=== PATIENT | male | born 1970 | race Hispanic/Latino ===

== ENCOUNTER 2016-06-01 14:47 | Observation (INO) | payer OTHER ==
[2016-06-01] MEDS ORDERED: Sodium Chloride 0.9% 1,000 ML IV STA (15:22)
[2016-06-01 16:04] LABS: BASO # 0.1 K/uL (0.0-0.2); EOS # 0.1 K/uL (0.0-0.7); HEMATOCRIT 47.1 % (35.0-51.0); LYMPH % 27.6 % (20.0-40.0); MEAN CELL VOLUME 101.1 fl (80.0-94.0); MEAN CORPUSCULAR HEMOGLOBIN 33.3 pg (27.0-31.0); MEAN CORPUSCULAR HGB CONC 32.9 g/dL (33.0-37.0); MEAN PLATELET VOLUME 7.1 fl (7.2-11.7); MONO # 0.8 K/uL (0.0-0.8); MONO % 7.4 % (0.0-10.0); NEUT # 6.8 K/uL (1.8-7.0); RED CELL DISTRIBUTION WIDTH 15.1 % (11.5-14.5); WHITE BLOOD COUNT 10.8 K/uL (4.8-10.8)
--- NOTE | 2016-06-01 16:20 | ED PDOC ---
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 In ED patient states he has no memory of being in the cab, states last memory was his getting into the cab. Admits to a history of seizure but is not on any medication because, " the medication never agreed with me." Patient also admits to drinking heavily, last alcoholic drink last night. Denies drug use, urine incontinence, tongue biting or injury. Of note patient was recently admitted for bad facial cellulitis, currently still on antibiotics. Past Medical History Reviewed: Historical Data, Nursing Documentation, Vital Signs Vital Signs: Last Vital Signs Temp 97.8 F 06/02/16 13:00 Pulse 84 06/02/16 13:00 Resp 18 06/02/16 13:00 BP 127/73 06/02/16 13:00 Pulse Ox 98 06/02/16 13:00 - Medical History PMH: Seizures Denies: HIV, Chronic Kidney Disease - Surgical History Surgical History: Tonsillectomy - Family History Family History: States: Unknown Family Hx - Living Arrangements Living Arrangements: With Family - Social History Current smoker - smoking cessation education provided: Yes Alcohol: < 2 Drinks/Day Drugs: Cannabis (occasional) - Home Medications Home Medications: Ambulatory Orders Medication Instructions Recorded Clindamycin [Cleocin] 300 mg PO Q6H 06/01/16 Clotrimazole/Betamethasone 1 appl TOP TID 06/01/16 [Lotrisone] Multivitamin [Multi-Vitamin Daily] 1 tab PO DAILY 06/01/16 Neomycin/Polymyxin/Dexamethaso 1 drop RIGHTEYE 5XD 06/01/16 [Maxitrol Opht Susp] - Allergies Allergies/Adverse Reactions: Allergies Allergy/AdvReac Type Severity Reaction Status Date / Time acetaminophen [From Tylenol] Allergy RASH Verified 09/14/15 16:17 amoxicillin Allergy NAUSEA Verified 09/14/15 16:17 ampicillin Allergy RASH Verified 09/14/15 16:16 erythromycin base Allergy URTICARIA Verified 09/14/15 16:17 Review of Systems ROS Statement: Except As Marked, All Systems Reviewed And Found Negative Constitutional: Negative for: Weakness Eyes: Negative for: Vision Change Cardiovascular: Negative for: Chest Pain, Palpitations Respiratory: Negative for: Shortness of Breath Gastrointestinal: Negative for: Abdominal Pain Musculoskeletal: Negative for: Neck Pain Neurological: Positive for: Seizures. Negative for: Weakness, Numbness Physical Exam - Reviewed Nursing Documentation Reviewed: Yes Vital Signs Reviewed: Yes - Physical Exam Appears: Positive for: Non-toxic (appears older than stated age), No Acute Distress Head Exam: Positive for: ATRAUMATIC, NORMAL INSPECTION, NORMOCEPHALIC Skin: Positive for: Normal Color, Warm, Rash (Deep red, erythematous well demarkated rash to right face including nasal labial fold, cheek down to upper lip. (-) tenderness (-) blanching (-) exudates) Eye Exam: Positive for: Normal appearance, EOMI, PERRL ENT: Negative for: Normal ENT Inspection (DMM) Neck: Positive for: Normal, Painless ROM Cardiovascular/Chest: Positive for: Regular Rate, Rhythm, Tachycardia. Negative for: Murmur Respiratory: Positive for: Normal Breath Sounds. Negative for: Respiratory Distress Back: Positive for: Normal Inspection, Other (Mild diffuse lumbar (-) step off. Negative bilateral straight leg raise ) Extremity: Positive for: Normal ROM. Negative for: Pedal Edema Neurologic/Psych: Positive for: Alert, sizing machine and drier operator II-XII (grossly intact ), Oriented. Negative for: Motor/Sensory Deficits - Laboratory Results Result Diagrams: 06/01/16 15:20 06/01/16 18:19 - ECG O2 Sat by Pulse Oximetry: 97 (RA) Pulse Ox Interpretation: Normal Medical Decision Making Medical Decision Making: Time: 1515 Initial impression: Seizure, dehydration, possible intoxication Initial plan: -- CT-head -- EKG -- Alcohol serum -- Ammonia -- CMP -- Creatine Phosphokinase -- UDS -- Lact acid -- Magnesium -- Phosphorous -- Urine dip -- CBC -- NSF,Ativan -- electronic device monitor While in ED patient had a witness seizure with a posticle phase lasting 2 minutes, with about 5+ minutes of post ictal state. Seizure aborted with Ativan 2mg IV, patient at this time is A&O x3 with no memory of the incident. No urine incontinence or tongue biting. Labs with multiple derangements, including ammonia elevation. Will place patient on observation for multiple seizures. Needs repeat labs after hydration. Accession No. : [id number] Patient Name / ID : QUIANA PHIPPS / [id number] Exam Date : 06/01/2016 16:37:06 ( Approved ) Study Comment : Sex / Age : M / 46Y Creator : Swapnil Clark MD Dictator : Swapnil Clark MD Helicopter Utility Aircrewman : Tile Setter : Swapnil Clark MD Approver2 : Report Date : 06/01/2016 16:57:21 My Comment : PROCEDURE: CT HEAD WITHOUT CONTRAST. HISTORY: SEZIURE ?TRAUMA COMPARISON: 11/03/2015 TECHNIQUE: Axial computed tomography images were obtained through the head/brain without intravenous contrast. Radiation dose: Total exam DLP = 1092 mGy-cm. This CT exam was performed using one or more of the following dose reduction techniques: Automated exposure control, adjustment of the mA and/or kV according to patient size, and/or use of iterative reconstruction technique. FINDINGS: HEMORRHAGE: No intracranial hemorrhage. BRAIN: No mass effect or edema. No atrophy or chronic microvascular ischemic changes. VENTRICLES: Unremarkable. No hydrocephalus. CALVARIUM: Unremarkable. PARANASAL SINUSES: Unremarkable as visualized. No significant inflammatory changes. MASTOID AIR CELLS: Unremarkable as visualized. No inflammatory changes. OTHER FINDINGS: None. IMPRESSION: Normal CT of the Head. DANIELLE TATUM resident covering for Dr Juan Pablo Camargo Attestation: Documented by Cecily Martínez acting as a scribe for Micheline Barksdale MD MD Scribe Attestation: All medical record entries made by the Scribe were at my direction and personally dictated by me. I have reviewed the chart and agree that the record accurately reflects my personal performance of the history, physical exam, medical decision making, and the department course for this patient. I have also personally directed, reviewed, and agree with the discharge instructions and disposition. Disposition - Clinical Impression Clinical Impression: Recurrent seizures Counseled Patient/Family Regarding: Studies Performed, Diagnosis - Disposition Disposition Time: 16:30 Condition: FAIR - Pt Status Changed To: Hospital Disposition Of: Observation - POA Present On Arrival: Falls Or Trauma
[2016-06-01 16:29] LABS: ALCOHOL SERUM < 10 mg/dl (0-10); ALKALINE PHOSPHATASE 96 U/L (38-126); ALT/SGPT 16 U/L (21-72); AST/SGOT 50 U/L (17-59); BILIRUBIN,TOTAL 0.7 mg/dl (0.2-1.3); BLOOD UREA NITROGEN 9 mg/dl (9-20); CALCIUM 10.5 mg/dL (8.4-10.2); CHLORIDE 105 mmol/L (98-107); GFR AFRICAN-AMERICAN > 60; GLUCOSE,RANDOM 154 mg/dL (75-110); MAGNESIUM 2.4 MG/DL (1.6-2.3); PHOSPHOROUS 4.4 mg/dl (2.5-4.5); POTASSIUM 3.5 MMOL/L (3.6-5.0); SODIUM 150 mmol/l (132-148); TOTAL PROTEIN 8.4 G/DL (6.3-8.2)
[2016-06-01 16:38] LABS: ALB/GLOB RATIO 1.5 (1.0-2.1)
[2016-06-01 16:44] LABS: CARBON DIOXIDE 6 mmol/L (22-30)
--- NOTE | 2016-06-01 16:58 | CT ---
PROCEDURE: CT HEAD WITHOUT CONTRAST. HISTORY: SEZIURE ?TRAUMA COMPARISON: 11/03/2015 TECHNIQUE: Axial computed tomography images were obtained through the head/brain without intravenous contrast. Radiation dose: Total exam DLP = 1092 mGy-cm. This CT exam was performed using one or more of the following dose reduction techniques: Automated exposure control, adjustment of the mA and/or kV according to patient size, and/or use of iterative reconstruction technique. FINDINGS: HEMORRHAGE: No intracranial hemorrhage. BRAIN: No mass effect or edema. No atrophy or chronic microvascular ischemic changes. VENTRICLES: Unremarkable. No hydrocephalus. CALVARIUM: Unremarkable. PARANASAL SINUSES: Unremarkable as visualized. No significant inflammatory changes. MASTOID AIR CELLS: Unremarkable as visualized. No inflammatory changes. OTHER FINDINGS: None. IMPRESSION: Normal CT of the Head.
--- NOTE | 2016-06-01 17:39 | RAD ---
HISTORY: seizure COMPARISON: Chest x-ray performed 09/15/10 TECHNIQUE: Chest, one view. FINDINGS: LUNGS: No focal consolidation. Please note that chest x-ray has limited sensitivity for the detection of pulmonary masses. PLEURA: No significant pleural effusion identified. No definite pneumothorax . CARDIOVASCULAR: Heart size appears within normal limits. OSSEOUS STRUCTURES: Multiple chronic appearing right rib fracture deformities (Right 3rd, 4th, 6th, and 7th ribs). Correlate clinically. VISUALIZED UPPER ABDOMEN: Unremarkable. OTHER FINDINGS: None. IMPRESSION: No focal consolidation, significant pleural effusion, or definite pneumothorax identified. Multiple chronic appearing right rib fracture deformities. Correlate clinically.
--- NOTE | 2016-06-01 17:50 | CP.PCM.HP ---
<MkYandel T - Last Filed: 06/02/16 06:08> History of Present Illness - History of Present Illness History of Present Illness: 46 yo M w PMHx of seizure disorder, facial cellulitis from Mar, and etoh abuse is admitted for seizure disorder and r/o liver disease. 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 Pt did have second seizure after arriving in the ED. He is alert, answers questions well, but does complain of diffuse myalgias. He has 5-6 bottles of beer per day and has been drink for the previous ~20 years, with his last drink yesterday evening. Pt claims to have a seizure disorder of unknown origin that only sometimes coincides with periods without etoh. He does not take any medication due to unwanted side effects. He denies any complaints or problems regarding his facial cellulitis, stating that he takes his medications regularly and adds that his skin is slowly improving. Pt denies f/c/n/v/d/c, headaches, cp, sob, dyspnea, cough, abd pain, hematuria, or dysuria. PMD: Dr Mcdonald PMHx: ?Seizure disorder, Cellulitis of Face (Mar), Chronic etoh abuse, h/ o cocaine abuse PSHx: Appendectomy 20+ years prior Allergies: NKDA Home Meds: Clotrimazole/Betamethasone TOP TID, Clindamycin PO Q6H, Neomycin/ Polymyxin/Dexamethasone OU 5xD SHx: Drinks 6-12 bottles of beer daily w last drink last night, denies cigarettes, states marijuana intermittently ED Course: -CBC -CMP --f/u BMP -etoh Serum -Drug Screen -Ammonia Stat --f/u Ammonia -Lactic Acid --f/u Lactic Acid -Mg/Phos -CPK -CXR -CT Head -EKG -NS 1L Bolus -Ativan 2mg IV STAT x1 -Lactulose 20gm PO ONCE Present on Admission - Present on Admission Any Indicators Present on Admission: No History of DVT/PE: No History of Uncontrolled Diabetes: No Urinary Catheter: No Decubitus Ulcer Present: No Review of Systems - Review of Systems Review of Systems: see HPI Past Patient History - Infectious Disease Hx of Infectious Diseases: None - Past Medical History & Family History Past Medical History?: Yes - Past Social History Smoking Status: Light Smoker < 10 Cigarettes Daily - CARDIAC Hx Cardiac Disorders: No - PULMONARY Hx Respiratory Disorders: No - NEUROLOGICAL Hx Seizures: Yes - HEENT Hx HEENT Problems: No - RENAL Hx Chronic Kidney Disease: No - ENDOCRINE/METABOLIC Hx Endocrine Disorders: No - HEMATOLOGICAL/ONCOLOGICAL Hx Human Immunodeficiency Virus (HIV): No - INTEGUMENTARY Hx Dermatological Problems: No - MUSCULOSKELETAL/RHEUMATOLOGICAL Hx Falls: No - GASTROINTESTINAL Hx Gastrointestinal Disorders: No - GENITOURINARY/GYNECOLOGICAL Hx Genitourinary Disorders: No - PSYCHIATRIC Hx Psychophysiologic Disorder: No Hx Substance Use: Yes (FREQUENT MARIJUANA USE,OCCASIONAL COCAINE USE) - SURGICAL HISTORY Hx Tonsillectomy: Yes - ANESTHESIA Hx Anesthesia: Yes Hx Anesthesia Reactions: No Hx Malignant Hyperthermia: No Meds Allergies/Adverse Reactions: Allergies Allergy/AdvReac Type Severity Reaction Status Date / Time acetaminophen [From Tylenol] Allergy RASH Verified 09/14/15 16:17 amoxicillin Allergy NAUSEA Verified 09/14/15 16:17 ampicillin Allergy RASH Verified 09/14/15 16:16 erythromycin base Allergy URTICARIA Verified 09/14/15 16:17 Physical Exam - Constitutional Appears: Non-toxic, No Acute Distress, Unkempt - Head Exam Head Exam: NORMOCEPHALIC Additional comments: healing, erythematous, non-draining rash from R occipital area towards R labial fold - Eye Exam Eye Exam: EOMI Pupil Exam: PERRL - ENT Exam ENT Exam: Mucous Membranes Dry - Neck Exam Neck exam: Positive for: Full Rom. Negative for: Tenderness - Respiratory Exam Respiratory Exam: Clear to Auscultation Bilateral, NORMAL BREATHING PATTERN. absent: Rhonchi, Wheezes - Cardiovascular Exam Cardiovascular Exam: REGULAR RHYTHM - GI/Abdominal Exam GI & Abdominal Exam: Soft. absent: Tenderness - Extremities Exam Extremities exam: Negative for: calf tenderness, pedal edema - Back Exam Back exam: NORMAL INSPECTION. absent: CVA tenderness (L), CVA tenderness (R), vertebral tenderness - Neurological Exam Neurological exam: Alert, CN II-XII Intact, Oriented x3 - Psychiatric Exam Psychiatric exam: Normal Affect, Normal Mood - Skin Skin Exam: Dry, Intact, Normal Color, Warm Results - Vital Signs Recent Vital Signs: Last Vital Signs Temp 98.0 F 06/01/16 14:50 Pulse 114 H 06/01/16 16:59 Resp 14 06/01/16 16:59 BP 112/75 06/01/16 16:59 Pulse Ox 98 06/01/16 16:59 - Labs Result Diagrams: 06/01/16 15:20 06/01/16 18:19 Assessment & Plan - Assessment and Plan (Free Text) Plan: 46 yo M w PMHx of seizure disorder, facial cellulitis from Mar, and etoh abuse is admitted for AMS due to seizure, in setting of ?seizure disorder and r/ o liver disease 1) AMS w ?h/o Seizure Disorder -Completely AAOx3, answers questions completely and appropriately -No focal deficits on physical exam -Seizure Precautions in place -Neuro Consult aware and onboard -CT Head: Normal CT of the Head -Lactic Acid originally 22.7 --f/u lvl resulted 1.5 (wnl) -Ativan 2mg IVP Q6H PRN seizures/withdrawal -Zofran 4mg IVP Q6H PRN -f/u Neuro Recommendations -f/u Drug Tox 2) r/o Liver Disease -Ammonia originally 312 --f/u lvl resulted < 9 -GI Consult aware and onboard -f/u U/S Abd 3) Chronic etoh abuse -Alcohol lvl < 10 -Banana bag 1L @ 500mL/hr -Ativan 2mg IVP Q6H PRN seizures/withdrawal -NPO until Banana bag given 4) Facial Abscess -Improved from previous admission -Chronic condition currently managed with set medicinal regimen -Clindamycin PO Q6H -Neomycin/Polymyxin/Dexamethasone OU 5xD 5) DVT Prophylaxis -SCDs -Lovenox 40mg SC Daily <Chaz Mcdonald - Last Filed: 06/06/16 06:58> Results - Vital Signs Recent Vital Signs: Last Vital Signs Temp 97.8 F 06/02/16 13:00 Pulse 84 06/02/16 13:00 Resp 18 06/02/16 13:00 BP 127/73 06/02/16 13:00 Pulse Ox 97 06/02/16 15:37 - Labs Result Diagrams: 06/01/16 15:20 06/01/16 18:19 Attending/Attestation - Attestation I have personally seen and examined this patient.: Yes I have fully participated in the care of the patient.: Yes I have reviewed all pertinent clinical information: Yes
[2016-06-01 18:44] LABS: BLOOD UREA NITROGEN 10 mg/dl (9-20); CALCIUM 9.8 mg/dL (8.4-10.2); CARBON DIOXIDE 25 mmol/L (22-30); CHLORIDE 102 mmol/L (98-107); GFR AFRICAN-AMERICAN > 60; GLUCOSE,RANDOM 93 mg/dL (75-110); PARTIAL THROMBOPLASTIN TIME 19.6 SECONDS (23.3-32.5); POTASSIUM 3.9 MMOL/L (3.6-5.0); SODIUM 136 mmol/l (132-148)
[2016-06-01] MEDS ORDERED: Sodium Chloride 0.9% 1,000 ML IV SCH (18:45)
[2016-06-01] MEDS ORDERED: Multivitamin (MVI) 10 ML, Thiamine 100 MG, Folic Acid 1 MG in Sodium Chloride 0.9% 1,00... IV ONE (19:31)
[2016-06-01] MEDS: Maxitrol Opht Susp OU SCH (20:52)
[2016-06-02] MEDS: Maxitrol Opht Susp OU SCH ×3 (04:28→13:00)
--- NOTE | 2016-06-02 08:33 | CP.PCM.PN ---
<Sean New - Last Filed: 06/02/16 15:27> Subjective - Date & Time of Evaluation Date of Evaluation: 06/02/16 Time of Evaluation: 08:29 - Subjective Subjective: The patient is a 46 y/o man w PMHx of seizure disorder, facial cellulitis from Mar, and etoh abuse is admitted for AMS due to seizure, in setting of unknown seizure disorder and r/o liver disease The patient was seen this morning. There are non acute events overnight. The patient is not in acute distress. The patient is laying in bed comfortably. The patient denies seizures overnight and since ED. The patient denies shaking , visual, auditory, and tactile hallucinations. The patient is tolerating PO and voiding appropriately. The patient denies headaches, dizziness, chest pain , dyspnea, abdominal pain, nausea, vomiting, dysuria, and fevers. Objective - Vital Signs/Intake and Output Vital Signs (last 24 hours): Temp Pulse Resp BP Pulse Ox 98.7 F 74 18 108/68 98 06/02/16 04:31 06/02/16 04:31 06/02/16 04:31 06/02/16 04:31 06/02/16 04:31 - Medications Medications: Current Medications Carbamazepine (Tegretol-Xr) 200 mg PO Q12 [facility] Clindamycin HCl (Cleocin) 300 mg PO Q6H [facility] Last Admin: 06/02/16 06:20 Dose: 300 mg Clotrimazole (Lotrimin 1% Cream) 1 applic TOP TID [facility] Enoxaparin Sodium (Lovenox) 40 mg SC DAILY [facility] PRN Reason: Protocol Lorazepam (Ativan) 2 mg IVP Q6 PRN PRN Reason: Other Neomycin/Polymyxin/Dexamethasone (Maxitrol Opht Susp) 1 drop OU 5XD [facility] Last Admin: 06/02/16 04:28 Dose: 1 drop Ondansetron HCl (Zofran Inj) 4 mg IVP Q6 PRN PRN Reason: Nausea/Vomiting Thiamine HCl (Vitamin B1 Tab) 50 mg PO DAILY [facility] Vitamin B Complex/Vit C/Folic Acid (Nephro-Albino) 1 tab PO DAILY [facility] - Labs Labs: 06/01/16 18:19 PT 9.8 SECONDS (9.6-11.2) 06/01/16 18:19 INR 0.94 (0.92-1.08) 06/01/16 18:19 APTT 19.6 SECONDS (23.3-32.5) L 06/01/16 18:19 - Constitutional Appears: No Acute Distress - Head Exam Head Exam: NORMOCEPHALIC Additional comments: healing, erythematous, non-draining rash from R occipital area towards R labial fold - Eye Exam Eye Exam: EOMI Pupil Exam: PERRL - Neck Exam Neck Exam: Full ROM - Respiratory Exam Respiratory Exam: Clear to Ausculation Bilateral, NORMAL BREATHING PATTERN. absent: Accessory Muscle Use, Chest Wall Tenderness, Decreased Breath Sounds, Prolonged Expiratory Phase, Rales, Rhonchi, Wheezes, Respiratory Distress, Stridor - Cardiovascular Exam Cardiovascular Exam: REGULAR RHYTHM. absent: Tachycardia - GI/Abdominal Exam GI & Abdominal Exam: Soft, Normal Bowel Sounds. absent: Distended, Tenderness - Extremities Exam Extremities Exam: Full ROM, Normal Inspection. absent: Calf Tenderness, Tenderness - Neurological Exam Neurological Exam: Alert, Awake, CN II-XII Intact, Oriented x3 - Skin Skin Exam: Dry, Intact, Normal Color, Warm Assessment and Plan - Assessment and Plan (Free Text) Assessment: The patient is a 46 y/o man w PMHx of seizure disorder, facial cellulitis from Mar, and etoh abuse is admitted for AMS due to seizure, in setting of seizure disorder and r/o liver disease Plan: 1) AMS w ?h/o Seizure Disorder -Completely AAOx3, answers questions completely and appropriately -No focal deficits on physical exam -Seizure Precautions in place -Neuro Consult aware and onboard -CT Head: Normal CT of the Head -Lactic Acid 22.7 --f/u lvl resulted 1.5 (wnl) -Ativan 2mg IVP Q6H PRN seizures/withdrawal -Zofran 4mg IVP Q6H PRN -f/u Neuro Recommendations -Drug Tox: positive for cannabinoids -carbamazepine 200 mg PO Q12h -EEG ordered -brain mRI w/wo contrast ordered -UA ordered 2) r/o Liver Disease -Ammonia originally 312 --f/u lvl resulted < 9 -GI Consult aware and onboard -f/u U/S Abd 3) Chronic etoh abuse -Alcohol lvl < 10 -Banana bag 1L @ 500mL/hr -Ativan 2mg IVP Q6H PRN seizures/withdrawal -NPO until Banana bag given -thiamine 50 mg PO daily 4) Facial Abscess -Improved from previous admission -Chronic condition currently managed with set medicinal regimen -Clindamycin PO Q6H -Neomycin/Polymyxin/Dexamethasone OU 5xD 5) DVT Prophylaxis -SCDs -Lovenox 40mg SC Daily <Chaz Mcdonald - Last Filed: 06/06/16 06:59> Objective - Vital Signs/Intake and Output Vital Signs (last 24 hours): Temp Pulse Resp BP Pulse Ox 97.8 F 84 18 127/73 97 06/02/16 13:00 06/02/16 13:00 06/02/16 13:00 06/02/16 13:00 06/02/16 15:37 - Labs Labs: 06/01/16 18:19 PT 9.8 SECONDS (9.6-11.2) 06/01/16 18:19 INR 0.94 (0.92-1.08) 06/01/16 18:19 APTT 19.6 SECONDS (23.3-32.5) L 06/01/16 18:19 Attending/Attestation - Attestation I have personally seen and examined this patient.: Yes I have fully participated in the care of the patient.: Yes I have reviewed all pertinent clinical information, including history, physical exam and plan: Yes
[2016-06-02] MEDS ORDERED: Enoxaparin 40 mg Syringe SC SCH (09:00)
[2016-06-02] MEDS ORDERED: Multivitamin Vitamin B Complex (Nephro-Vite) Tab PO SCH (09:00)
--- NOTE | 2016-06-02 13:17 | CON ---
DATE: 06/02/2016 REFERRING PHYSICIAN: Dr. Mcdonald REASON FOR CONSULTATION: Elevated ammonia level. This is a pleasant 46-year-old man who is an alcoholic, essentially a seizure disorder, known with a history of recently, active drinker, had a witnessed seizure and GI was called for elevated amm onia. The he patient actually has been drinking significantly for fpc, many times a day kate boone. Denies any fevers, chills, nausea or vomiting. At this point, he is completely with it and l ucid as he was yesterday after the seizure and is currently lying in bed, comfortable, in no apparent distress. PAST MEDICAL HISTORY: As above. PAST SURGICAL HISTORY: As above. MEDICATIONS: Have been reviewed. All other systems have been reviewed and negative apart from the HPI. PHYSICAL EXAMINATION: VITAL SIGNS: Here in the hospital, grossly unremarkable. GENERAL: This is a pleasant, middle-aged man, lying in bed, comfortable, in no apparent distress. HEAD: Normocephalic, atraumatic. EYES: Pupils equally reactive to light bilaterally. No conjunctival pallor or icterus. NECK: Supple, normal range of motion. No lymphadenopathy appreciated. LUNGS: Coarse breath sounds bilaterally. HEART: S1, S2. Regular rate and rhythm. No murmurs appreciated. ABDOMEN: Soft, nontender, bowel sounds present. No rebound, no guarding. RECTAL: Deferred. EXTREMITIES: Pulses present bilaterally. SKIN: Warm, dry, intact. NEUROLOGIC: Alert and oriented x 3. All labs and relevant radiology have been reviewed. LABORATORIES: Initially ammonia was 312 and then 9 on the same day. Currently, it is 28. Hemoglobi n is stable. LFTs are not elevated at all. Positive for cannabinoids in the urine. ASSESSMENT AND PLAN: This is a 46-year-old male with elevated ammonia. Given that he had a seizure, this is more likely metabolic encephalopathy. The ammonia at this point, since he is lucid, is comp letely to be ignored at this point. I would get an ultrasound to rule out cirrhosis for screening pu rposes for hepatocellular carcinoma as indicated. Otherwise, from a GI standpoint, advance diet as t olerated and follow up with me in the office. Thank you for the consult. Zack Claros MD, PhD cc:Chaz Mcdonald MD [id number] TT: 06/02/2016 13:17:08 Confirmation # [id number] Dictation # [id number]
[2016-06-02 13:23] VITALS: BP 127/73; PULSE 84; RESP 18; TEMP 97.8
[2016-06-02 15:34] VITALS: O2SAT 97
--- NOTE | 2016-06-02 16:08 | CP.PCM.DIS ---
<Sean New - Last Filed: 06/02/16 15:50> Provider - Provider Date of Admission: 06/01/16 17:14 Attending physician: Chaz Mcdonald MD Time Spent in preparation of Discharge (in minutes): 30 Diagnosis - Discharge Diagnosis (1) Generalized seizure Status: Acute (2) Recurrent seizures Status: Chronic (3) Cellulitis and abscess of face Status: Chronic Hospital Course - Lab Results Lab Results: Most Recent Lab Values WBC 10.8 K/uL (4.8-10.8) D 06/01/16 15:20 RBC 4.66 Mil/uL (4.40-5.90) 06/01/16 15:20 Hgb 15.5 g/dL (12.0-18.0) 06/01/16 15:20 Hct 47.1 % (35.0-51.0) 06/01/16 15:20 MCV 101.1 fl (80.0-94.0) H D 06/01/16 15:20 MCH 33.3 pg (27.0-31.0) H 06/01/16 15:20 MCHC 32.9 g/dL (33.0-37.0) L 06/01/16 15:20 RDW 15.1 % (11.5-14.5) H 06/01/16 15:20 Plt Count 285 K/uL (130-400) 06/01/16 15:20 MPV 7.1 fl (7.2-11.7) L 06/01/16 15:20 Neut % (Auto) 63.0 % (50.0-75.0) 06/01/16 15:20 Lymph % (Auto) 27.6 % (20.0-40.0) 06/01/16 15:20 [place] % (Auto) 7.4 % (0.0-10.0) 06/01/16 15:20 Eos % (Auto) 1.0 % (0.0-4.0) 06/01/16 15:20 Baso % (Auto) 1.0 % (0.0-2.0) 06/01/16 15:20 Neut # 6.8 K/uL (1.8-7.0) 06/01/16 15:20 Lymph # 3.0 K/uL (1.0-4.3) 06/01/16 15:20 [place] # 0.8 K/uL (0.0-0.8) 06/01/16 15:20 Eos # 0.1 K/uL (0.0-0.7) 06/01/16 15:20 Baso # 0.1 K/uL (0.0-0.2) 06/01/16 15:20 PT 9.8 SECONDS (9.6-11.2) 06/01/16 18:19 INR 0.94 (0.92-1.08) 06/01/16 18:19 APTT 19.6 SECONDS (23.3-32.5) L 06/01/16 18:19 Sodium 136 mmol/l (132-148) 06/01/16 18:19 Potassium 3.9 MMOL/L (3.6-5.0) 06/01/16 18:19 Chloride 102 mmol/L (98-107) 06/01/16 18:19 Carbon Dioxide 25 mmol/L (22-30) 06/01/16 18:19 Anion Gap 13 (10-20) 06/01/16 18:19 BUN 10 mg/dl (9-20) 06/01/16 18:19 Creatinine 0.8 mg/dL (0.8-1.5) 06/01/16 18:19 Est GFR ( Amer) > 60 06/01/16 18:19 Est GFR (Non-Af Amer) > 60 06/01/16 18:19 POC Glucose (mg/dL) 111 mg/dL (65-110) H 06/01/16 14:56 Random Glucose 93 mg/dL (75-110) 06/01/16 18:19 Lactic Acid 1.5 MMOL/L (0.7-2.1) 06/01/16 18:19 Calcium 9.8 mg/dL (8.4-10.2) 06/01/16 18:19 Phosphorus 4.4 mg/dl (2.5-4.5) 06/01/16 15:20 Magnesium 2.4 MG/DL (1.6-2.3) H 06/01/16 15:20 Total Bilirubin 0.7 mg/dl (0.2-1.3) 04/06/17 15:20 AST 50 U/L (17-59) 06/01/16 15:20 ALT 16 U/L (21-72) L D 06/01/16 15:20 Alkaline Phosphatase 96 U/L (38-126) 06/01/16 15:20 Ammonia 28 umo/L (16-60) D 06/02/16 07:00 Total Creatine Kinase 102 U/L (55-170) 06/01/16 15:20 Total Protein 8.4 G/DL (6.3-8.2) H 06/01/16 15:20 Albumin 5.1 g/dL (3.5-5.0) H 06/01/16 15:20 Globulin 3.3 gm/dL (2.2-3.9) 06/01/16 15:20 Albumin/Globulin Ratio 1.5 (1.0-2.1) 06/01/16 15:20 Vitamin B12 427 pg/mL (239-931) 06/02/16 07:00 Urine Opiates Screen Negative (NEGATIVE) 06/02/16 02:49 Urine Methadone Screen Negative (NEGATIVE) 06/02/16 02:49 Ur Barbiturates Screen Negative (NEGATIVE) 06/02/16 02:49 Ur Phencyclidine Scrn Negative (NEGATIVE) 06/02/16 02:49 Ur Amphetamines Screen Negative (NEGATIVE) 06/02/16 02:49 U Benzodiazepines Scrn Negative (NEGATIVE) 06/02/16 02:49 U Oth Cocaine Metabols Negative (NEGATIVE) 06/02/16 02:49 U Cannabinoids Screen Positive (NEGATIVE) H 06/02/16 02:49 Alcohol, Quantitative < 10 mg/dl (0-10) 06/01/16 15:20 - Hospital Course Hospital Course: The patient is a 46 y/o man w/ PMHx of seizure disorder, facial cellulitis from Mar, and etoh abuse is admitted for seizure disorder and r/o liver disease. Patient was traveling to work in a cab, had a witnessed seizure, experienced + urinary incontinence, and slowly awoke w c/o of diffuse muscle pain. Patient did have second seizure after arriving in the ED. He is alert, answers questions well, but does complain of diffuse myalgias. He has 5-6 bottles of beer per day and has been drink for the previous ~20 years, with his last drink yesterday evening. Patient claims to have a seizure disorder of unknown origin that only sometimes coincides with periods without etoh. He does not take any medication due to unwanted side effects. He denies any complaints or problems regarding his facial cellulitis, stating that he takes his medications regularly and adds that his skin is slowly improving. The patient had CBC done that had no acute findings but did show increased MCV of 101.1, CMP was WNL, lactic acid decreased from 22.7 to 1.5, ammonia was initially 312 and decreased to 28, drug screen positive for cannabinoids, coags with PT 9.8, INR 0.94, APTT 19.6. CXR and head CT were WNL. The patient was refusing EEG and brain MRI becasue he reports he had those done 2 weeks ago and he wants to leave by the afternoon. The patient was seen by GI and recommends continued management with outpatient follow up. The patient reports he wants to leave against medical advice. The patient had not yet been cleared by neurology. The patient was counseled on the risks of recurrent seizure without medication and risk of possible fall with head injury. The patient was able to repeat and reiterate the risks back to the Dr. New. The patient is competent to make his own decisions. The patient reports he has an appointment with Dr. Mcdonald on 2016. - Date & Time of H&P Date of H&P: 06/01/16 Time of H&P: 17:50 Discharge Exam - Head Exam Head Exam: NORMAL INSPECTION, NORMOCEPHALIC Additional comments: healing, erythematous, non-draining rash from R occipital area towards R labial fold - Eye Exam Eye Exam: EOMI Pupil Exam: PERRL - ENT Exam ENT Exam: Mucous Membranes Moist - Respiratory Exam Respiratory Exam: Clear to PA & Lateral. absent: Accessory Muscle Use, Chest Wall Tenderness, Decreased Breath Sounds, Prolonged Expiratory Phase, Rales, Rhonchi, Wheezes, Respiratory Distress, Stridor - Cardiovascular Exam Cardiovascular Exam: REGULAR RHYTHM. absent: Tachycardia - GI/Abdominal Exam GI & Abdominal Exam: Normal Bowel Sounds, Soft. absent: Diminished Bowel Sounds , Distended, Tenderness - Neurological Exam Neurological exam: Alert, CN II-XII Intact, Oriented x3 - Skin Skin Exam: Dry, Intact, Normal Color, Warm Discharge Plan - Follow Up Plan Condition: FAIR Disposition: AGAINST MEDICAL ADVICE <Chaz Mcdonald - Last Filed: 06/06/16 07:00> Provider - Provider Date of Admission: 06/01/16 17:14 Attending physician: Chaz Mcdonald MD Hospital Course - Lab Results Lab Results: Most Recent Lab Values WBC 10.8 K/uL (4.8-10.8) D 06/01/16 15:20 RBC 4.66 Mil/uL (4.40-5.90) 06/01/16 15:20 Hgb 15.5 g/dL (12.0-18.0) 06/01/16 15:20 Hct 47.1 % (35.0-51.0) 06/01/16 15:20 MCV 101.1 fl (80.0-94.0) H D 06/01/16 15:20 MCH 33.3 pg (27.0-31.0) H 06/01/16 15:20 MCHC 32.9 g/dL (33.0-37.0) L 06/01/16 15:20 RDW 15.1 % (11.5-14.5) H 06/01/16 15:20 Plt Count 285 K/uL (130-400) 06/01/16 15:20 MPV 7.1 fl (7.2-11.7) L 06/01/16 15:20 Neut % (Auto) 63.0 % (50.0-75.0) 06/01/16 15:20 Lymph % (Auto) 27.6 % (20.0-40.0) 06/01/16 15:20 [place] % (Auto) 7.4 % (0.0-10.0) 06/01/16 15:20 Eos % (Auto) 1.0 % (0.0-4.0) 06/01/16 15:20 Baso % (Auto) 1.0 % (0.0-2.0) 06/01/16 15:20 Neut # 6.8 K/uL (1.8-7.0) 06/01/16 15:20 Lymph # 3.0 K/uL (1.0-4.3) 06/01/16 15:20 [place] # 0.8 K/uL (0.0-0.8) 06/01/16 15:20 Eos # 0.1 K/uL (0.0-0.7) 06/01/16 15:20 Baso # 0.1 K/uL (0.0-0.2) 06/01/16 15:20 PT 9.8 SECONDS (9.6-11.2) 06/01/16 18:19 INR 0.94 (0.92-1.08) 06/01/16 18:19 APTT 19.6 SECONDS (23.3-32.5) L 06/01/16 18:19 Sodium 136 mmol/l (132-148) 06/01/16 18:19 Potassium 3.9 MMOL/L (3.6-5.0) 06/01/16 18:19 Chloride 102 mmol/L (98-107) 06/01/16 18:19 Carbon Dioxide 25 mmol/L (22-30) 06/01/16 18:19 Anion Gap 13 (10-20) 06/01/16 18:19 BUN 10 mg/dl (9-20) 06/01/16 18:19 Creatinine 0.8 mg/dL (0.8-1.5) 06/01/16 18:19 Est GFR ( Amer) > 60 06/01/16 18:19 Est GFR (Non-Af Amer) > 60 06/01/16 18:19 POC Glucose (mg/dL) 111 mg/dL (65-110) H 06/01/16 14:56 Random Glucose 93 mg/dL (75-110) 06/01/16 18:19 Lactic Acid 1.5 MMOL/L (0.7-2.1) 06/01/16 18:19 Calcium 9.8 mg/dL (8.4-10.2) 06/01/16 18:19 Phosphorus 4.4 mg/dl (2.5-4.5) 06/01/16 15:20 Magnesium 2.4 MG/DL (1.6-2.3) H 06/01/16 15:20 Total Bilirubin 0.7 mg/dl (0.2-1.3) 06/01/16 15:20 AST 50 U/L (17-59) 06/01/16 15:20 ALT 16 U/L (21-72) L D 06/01/16 15:20 Alkaline Phosphatase 96 U/L (38-126) 06/01/16 15:20 Ammonia 28 umo/L (16-60) D 06/02/16 07:00 Total Creatine Kinase 102 U/L (55-170) 06/01/16 15:20 Total Protein 8.4 G/DL (6.3-8.2) H 06/01/16 15:20 Albumin 5.1 g/dL (3.5-5.0) H 06/01/16 15:20 Globulin 3.3 gm/dL (2.2-3.9) 06/01/16 15:20 Albumin/Globulin Ratio 1.5 (1.0-2.1) 06/01/16 15:20 Vitamin B12 427 pg/mL (239-931) 06/02/16 07:00 Prolactin 7.1 ng/mL (3.7-17.9) 06/02/16 07:00 Urine Opiates Screen Negative (NEGATIVE) 06/02/16 02:49 Urine Methadone Screen Negative (NEGATIVE) 06/02/16 02:49 Ur Barbiturates Screen Negative (NEGATIVE) 06/02/16 02:49 Ur Phencyclidine Scrn Negative (NEGATIVE) 06/02/16 02:49 Ur Amphetamines Screen Negative (NEGATIVE) 06/02/16 02:49 U Benzodiazepines Scrn Negative (NEGATIVE) 06/02/16 02:49 U Oth Cocaine Metabols Negative (NEGATIVE) 06/02/16 02:49 U Cannabinoids Screen Positive (NEGATIVE) H 06/02/16 02:49 Alcohol, Quantitative < 10 mg/dl (0-10) 06/01/16 15:20 VZV IgG Antibody 1.64 (>/=1.10) 06/02/16 07:00 VZV IgM Antibody >=5.00 (<=0.90) H 06/02/16 07:00 Attending/Attestation - Attestation I have personally seen and examined this patient.: Yes I have fully participated in the care of the patient.: Yes I have reviewed all pertinent clinical information, including history, physical exam and plan: Yes
--- NOTE | 2016-06-02 19:37 | CARD ---
APPROVED REPORT EKG Measurement Heart [id number] <Conclusion> Sinus tachycardia Otherwise normal ECG
[2016-06-03 15:11] LABS: VARICELLA-ZOSTER AB (IGG) 1.64 (>/=1.10)
[2016-06-04 15:56] LABS: VARICELLA-ZOSTER AB (IGM) >=5.00 (<=0.90)
[2016-06-06 14:55] LABS: ACETONE None Detected (()); ETHANOL None Detected (()); METHANOL None Detected (())
== END 2016-06-02 16:44 | disposition left against medical advice (07) ==
LOC: H.ER 14:47 → H.ERHOLD 17:14 → H.TEL 18:46
PROVIDERS: ADMIT Family Medicine; ATTEND Family Medicine
DX: G40.409 Other generalized epilepsy and epileptic syndromes, not intractable, without status epilepticus (principal); L03.211 Cellulitis of face; Z88.6 Allergy status to analgesic agent; Z88.1 Allergy status to other antibiotic agents; Z88.0 Allergy status to penicillin; F17.200 Nicotine dependence, unspecified, uncomplicated; G40.802 Other epilepsy, not intractable, without status epilepticus; F10.20 Alcohol dependence, uncomplicated; Y90.0 Blood alcohol level of less than 20 mg/100 ml

== ENCOUNTER 2017-08-01 17:35 | Emergency (ER) | payer OTHER ==
[2017-08-01 17:35] VITALS: BMI 18.6
[2017-08-01] MEDS ORDERED: Sodium Chloride 0.9% 1,000 ML IV STA (17:55)
--- NOTE | 2017-08-01 18:06 | ED PDOC ---
HPI: Seizure Time Seen by Provider: 08/01/17 17:42 Chief Complaint (Nursing): Seizure Chief Complaint (Provider): Seizure History Per: Patient History/Exam Limitations: no limitations Recent Seizure Activity Began: Just Before Arrival Number Of Seizures: One Length Of Seizures (Duration): Unknown Associated Symptoms: Bit Tongue Additional Complaint(s): Bill Miles is a 47 year old male, with a past medical history of seizures, who was brought to the emergency department via EMS for witnessed seizure onset prior to arrival. Patient is currently complaining of generalized body aches and a mild chest pain. Patient states he was at work when he had a sense of gabi vu before seizure began, he is unsure of the duration. Patient reports he had a seizure about x2 months ago, he is currently taking Valproic acid 500mg PO BID but states he has not been compliant with medications. He denies any head injuries, fever, chills, headache, vision changes, nausea, vomit, diarrhea , abdominal pain, dizziness, numbness or tingling, weakness, shortness of breath , suicidal or homicidal ideation. No further medical complaints. No neck pain. PMD: Chaz Mcdonald Past Medical History Reviewed: Historical Data, Nursing Documentation, Vital Signs Vital Signs: Last Vital Signs Temp 98.7 F 08/01/17 17:38 Pulse 98 H 08/01/17 17:38 Resp 16 08/01/17 17:38 BP 120/88 08/01/17 17:38 Pulse Ox 98 08/01/17 20:27 - Medical History PMH: Depression, Seizures (alcohol withdrawal) Denies: HIV, Chronic Kidney Disease - Surgical History Surgical History: Tonsillectomy - Family History Family History: States: Unknown Family Hx - Social History Current smoker - smoking cessation education provided: No Alcohol: > 2 Drinks/Day - Immunization History Hx Tetanus Toxoid Vaccination: No Hx Influenza Vaccination: No Hx Pneumococcal Vaccination: No - Home Medications Home Medications: Ambulatory Orders Medication Instructions Recorded Divalproex [Depakote DR] 500 mg PO BID #60 tcp 04/21/17 Doxycycline Monohydrate 100 mg PO BID #14 capsule 04/21/17 Thiamine [Vitamin B1 Tab] 100 mg PO DAILY #30 tab 04/21/17 chlordiazePOXIDE [Librium] 25 mg PO Q8 PRN #5 cap 04/21/17 - Allergies Allergies/Adverse Reactions: Allergies Allergy/AdvReac Type Severity Reaction Status Date / Time amoxicillin Allergy NAUSEA Verified 04/18/17 06:52 ampicillin Allergy RASH Verified 04/18/17 06:52 erythromycin base Allergy URTICARIA Verified 04/18/17 06:52 Penicillins Allergy RASH Verified 08/01/17 17:38 Review of Systems ROS Statement: Except As Marked, All Systems Reviewed And Found Negative Constitutional: Positive for: Other (generalized body aches). Negative for: Fever, Chills Eyes: Negative for: Vision Change Cardiovascular: Positive for: Chest Pain (mild) Respiratory: Negative for: Shortness of Breath Gastrointestinal: Negative for: Nausea, Vomiting, Abdominal Pain, Diarrhea Neurological: Positive for: Seizures. Negative for: Weakness, Numbness ( tingling), Headache, Dizziness Psych: Negative for: Suicidal ideation (or homicidal ideation) Physical Exam - Reviewed Nursing Documentation Reviewed: Yes Vital Signs Reviewed: Yes - Physical Exam Appears: Positive for: Non-toxic Head Exam: Positive for: ATRAUMATIC, NORMAL INSPECTION, NORMOCEPHALIC Skin: Positive for: Normal Color, Warm, Dry Eye Exam: Positive for: Normal appearance, EOMI, PERRL ENT: Positive for: Other (mild abrasion to left frontal tongue). Negative for: Nasal Congestion Neck: Positive for: Painless ROM, Supple Cardiovascular/Chest: Positive for: Regular Rate, Rhythm. Negative for: Murmur Respiratory: Positive for: Normal Breath Sounds. Negative for: Respiratory Distress Gastrointestinal/Abdominal: Positive for: Normal Exam, Soft. Negative for: Tenderness Back: Positive for: Normal Inspection. Negative for: L CVA Tenderness, R CVA Tenderness, Vertebral Tenderness Extremity: Positive for: Normal ROM (upper and lower extremities). 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 Negative for: Motor/Sensory Deficits, Aphasia, Facial Droop - Laboratory Results Result Diagrams: 08/01/17 18:32 08/01/17 18:32 Interpretation Of Abn Labs: cannaboids - ECG ECG: Positive for: Interpreted By Me, Viewed By Me ECG Rhythm: Positive for: Normal QRS, Normal ST Segment, Sinus Rhythm O2 Sat by Pulse Oximetry: 98 (RA) Pulse Ox Interpretation: Normal - Radiology X-Ray: Interpreted by Me, Viewed By Me X-Ray Interpretation: No Acute Disease - CT Scan/US ct Other Rad Studies (CT/US): Read By Radiologist Other Rad Interpretation: no acute - Progress ED Course And Treament: 2026: Stable. AAOx3. Pain free. Will load valproic acid. Ambulated with no issues. Tolerated PO. Fu with pcp. Medical Decision Making Medical Decision Making: Time: 17:42 Initial Impression: seizure Initial Plan: --Head w/o contrast [CT] --EKG --Alcohol serum --CMP --Drug screen, urine --Troponin I --CBC w/ differential --Chest portable [RAD] --Sodium Chloride 1,000 ml IV 1,000 mls/hr --Reevaluation 18:[address] FINDINGS: HEMORRHAGE: No acute parenchymal, subarachnoid or extra-axial hemorrhage. BRAIN: Mild generalized volume loss. VENTRICLES: Unremarkable. No hydrocephalus. CALVARIUM: Unremarkable. PARANASAL SINUSES: Unremarkable as visualized. No significant inflammatory changes. MASTOID AIR CELLS: Unremarkable as visualized. No inflammatory changes. OTHER FINDINGS: None. IMPRESSION: No acute intracranial hemorrhage. . Mild generalized volume loss. ----- Scribe Attestation: Documented by Keyshawn Ngo, acting as a scribe for Alfonso Shelley MD. Provider Scribe Attestation: All medical record entries made by the Scribe were at my direction and personally dictated by me. I have reviewed the chart and agree that the record accurately reflects my personal performance of the history, physical exam, medical decision making, and the department course for this patient. I have also personally directed, reviewed, and agree with the discharge instructions and disposition. Disposition - Clinical Impression Clinical Impression: Seizure, Cannabis abuse - Patient ED Disposition Is Patient to be Admitted: No Counseled Patient/Family Regarding: Studies Performed, Diagnosis, Need For Followup - Disposition Referrals: [facility] [Outside] - 08/02/17 Disposition: Routine/Home Disposition Time: 22:21 Condition: STABLE Additional Instructions: Make sure to take your medications for seizure. You have the medications, you need to take it. Instructions: Seizures, Adult (DC), Marijuana Use and Addiction Forms: [facility] ED School/Work Excuse
[2017-08-01 18:39] LABS: BASO # 0.1 K/uL (0.0-0.2); BASO % 0.8 % (0.0-2.0); EOS % 0.5 % (0.0-4.0); HEMOGLOBIN 14.2 g/dL (12.0-18.0); LYMPH # 0.8 K/uL (1.0-4.3); LYMPH % 10.7 % (20.0-40.0); MEAN CORPUSCULAR HEMOGLOBIN 32.5 pg (27.0-31.0); MEAN CORPUSCULAR HGB CONC 33.9 g/dL (33.0-37.0); MEAN PLATELET VOLUME 6.3 fl (7.2-11.7); MONO # 0.5 K/uL (0.0-0.8); MONO % 7.3 % (0.0-10.0); NEUT # 5.7 K/uL (1.8-7.0); NEUT % 80.7 % (50.0-75.0); RBC 4.36 Mil/uL (4.40-5.90); RED CELL DISTRIBUTION WIDTH 13.5 % (11.5-14.5)
--- NOTE | 2017-08-01 18:45 | CT ---
PROCEDURE: CT HEAD WITHOUT CONTRAST. HISTORY: . Headache COMPARISON: Comparison made with prior CT scan brain 01/04/2017. TECHNIQUE: Axial computed tomography images were obtained through the head/brain without intravenous contrast. Radiation dose: Total exam DLP = 797.73 mGy-cm. This CT exam was performed using one or more of the following dose reduction techniques: Automated exposure control, adjustment of the mA and/or kV according to patient size, and/or use of iterative reconstruction technique. FINDINGS: HEMORRHAGE: No acute parenchymal, subarachnoid or extra-axial hemorrhage. BRAIN: Mild generalized volume loss. VENTRICLES: Unremarkable. No hydrocephalus. CALVARIUM: Unremarkable. PARANASAL SINUSES: Unremarkable as visualized. No significant inflammatory changes. MASTOID AIR CELLS: Unremarkable as visualized. No inflammatory changes. OTHER FINDINGS: None. IMPRESSION: No acute intracranial hemorrhage. . Mild generalized volume loss.
[2017-08-01 18:49] LABS: ALB/GLOB RATIO 1.6 (1.0-2.1); ALBUMIN 4.3 g/dL (3.5-5.0); ALT/SGPT 47 U/L (21-72); AST/SGOT 46 U/L (17-59); BLOOD UREA NITROGEN 9 mg/dl (9-20); CALCIUM 9.8 mg/dL (8.4-10.2); GFR AFRICAN-AMERICAN > 60; GFR NON-AFRICAN AMERICAN > 60
[2017-08-01 20:08] LABS: BARBITURATES, UR NEGATIVE (NEGATIVE); BENZODIAZEPINES, UR NEGATIVE (NEGATIVE); OPIATES, UR NEGATIVE (NEGATIVE); PHENCYCLIDINE, UR NEGATIVE (NEGATIVE)
[2017-08-01] MEDS ORDERED: Valproic Acid 250 mg/5 ml Oral Syrup (60 ml) PO STA (22:17)
[2017-08-01] MEDS ORDERED: Valproic Acid 250 mg/5 ml UD Cup PO STA (22:47)
[2017-08-01 22:49] VITALS: BP 122/89; PULSE 99; RESP 18; TEMP 100.1; O2SAT 100
--- NOTE | 2017-08-02 09:12 | RAD ---
HISTORY: dyspnea COMPARISON: Chest radiograph dated 06/01/2016. FINDINGS: LUNGS: No active pulmonary disease. PLEURA: No significant pleural effusion identified, no pneumothorax apparent. CARDIOVASCULAR: Normal. OSSEOUS STRUCTURES: Multiple old right-sided rib fractures redemonstrated. Unchanged. VISUALIZED UPPER ABDOMEN: Normal. OTHER FINDINGS: None. IMPRESSION: No active disease.
--- NOTE | 2017-08-02 17:19 | CARD ---
APPROVED REPORT EKG Measurement Heart [id number] <Conclusion> Normal sinus rhythm Normal ECG
== END 2017-08-01 22:52 | disposition home or self-care (01) ==
LOC: H.ER 17:35
DX: G40.909 Epilepsy, unspecified, not intractable, without status epilepticus (principal); F12.10 Cannabis abuse, uncomplicated; F32.9 Major depressive disorder, single episode, unspecified; Z88.0 Allergy status to penicillin; Z88.1 Allergy status to other antibiotic agents
CPT/HCPCS: 70450; 71045; 80053; 80164; 80320; 80324; 80345; 80346; 80349; 80353; 80358; 80361; 83992; 84484; 85025; 93005; 96360; 99285; J7030

== ENCOUNTER 2017-10-21 23:52 | Emergency (ER) | payer OTHER ==
[2017-10-21 23:52] VITALS: BMI 18.6
[2017-10-22] MEDS ORDERED: Sodium Chloride 0.9% 1,000 ML IV STA (00:13)
--- NOTE | 2017-10-22 01:19 | ED PDOC ---
Syncope/Near Syncope/Dizziness Time Seen by Provider: 10/22/17 00:06 Chief Complaint (Nursing): Dizziness/Lightheaded Past Medical History Reviewed: Historical Data, Nursing Documentation, Vital Signs Vital Signs: Last Vital Signs Temp 98.0 F 10/21/17 23:56 Pulse 104 H 10/21/17 23:56 Resp BP 171/93 H 10/21/17 23:56 Pulse Ox 96 10/21/17 23:56 - Medical History PMH: Depression, Seizures (alcohol withdrawal) Denies: HIV, Chronic Kidney Disease - Surgical History Surgical History: Tonsillectomy - Family History Family History: States: Unknown Family Hx - Social History Current smoker - smoking cessation education provided: Yes Alcohol: None Drugs: Denies (recent illicit drug use), Cocaine (many years in the past) - Immunization History Hx Tetanus Toxoid Vaccination: No Hx Influenza Vaccination: No Hx Pneumococcal Vaccination: No - Home Medications Home Medications: Ambulatory Orders Medication Instructions Recorded Divalproex [Depakote DR] 500 mg PO BID #60 tcp 04/21/17 Doxycycline Monohydrate 100 mg PO BID #14 capsule 04/21/17 Thiamine [Vitamin B1 Tab] 100 mg PO DAILY #30 tab 04/21/17 chlordiazePOXIDE [Librium] 25 mg PO Q8 PRN #5 cap 04/21/17 - Allergies Allergies/Adverse Reactions: Allergies Allergy/AdvReac Type Severity Reaction Status Date / Time amoxicillin Allergy NAUSEA Verified 04/18/17 06:52 ampicillin Allergy RASH Verified 04/18/17 06:52 erythromycin base Allergy URTICARIA Verified 04/18/17 06:52 Penicillins Allergy RASH Verified 08/01/17 17:38 Review of Systems ROS Statement: Except As Marked, All Systems Reviewed And Found Negative Constitutional: Positive for: Other (body aches) Skin: Positive for: Lesions (head, arms, legs) Neurological: Positive for: Headache, Dizziness, Other (insomnia) Psych: Positive for: Anxiety Physical Exam - Reviewed Nursing Documentation Reviewed: Yes Vital Signs Reviewed: Yes - Physical Exam Appears: Positive for: No Acute Distress (disheveled appearing) Head Exam: Negative for: ATRAUMATIC (abrasions to the left forehead and left zygomatic area) Eye Exam: Positive for: Normal appearance, EOMI, PERRL. 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 Negative for: Motor/Sensory Deficits - ECG ECG: Positive for: Interpreted By Me, Viewed By Me ECG Rhythm: Positive for: Normal QRS, Normal ST Segment, Sinus Bradycardia (59 bpm) O2 Sat by Pulse Oximetry: 96 Disposition - Disposition Referrals: Chaz Mcdonald MD [Primary Care Provider] - Forms: [employer] (Spanish)
--- NOTE | 2017-10-22 01:28 | ED PDOC ---
HPI: Neurologic - General Time Seen by Provider: 10/22/17 00:06 Chief Complaint (Nursing): Dizziness/Lightheaded Chief Complaint (Provider): Confusion Source: patient Exam Limitations: no limitations - History of Present Illness Timing/Duration: other (x3 days) Associated Symptoms: confusion Allergies/Adverse Reactions: Allergies amoxicillin Allergy (Verified 04/18/17 06:52) NAUSEA ampicillin Allergy (Verified 04/18/17 06:52) RASH erythromycin base Allergy (Verified 04/18/17 06:52) URTICARIA Penicillins Allergy (Verified 08/01/17 17:38) RASH Home Medications: Ambulatory Orders Divalproex [Depakote DR] 500 mg PO BID #60 tcp 04/21/17 Doxycycline Monohydrate 100 mg PO BID #14 capsule 04/21/17 Thiamine [Vitamin B1 Tab] 100 mg PO DAILY #30 tab 04/21/17 chlordiazePOXIDE [Librium] 25 mg PO Q8 PRN #5 cap 04/21/17 Divalproex [Depakote DR(*BID*)] 500 mg PO BID #60 tcp 10/22/17 Ibuprofen [Motrin Tab] 600 mg PO Q8 PRN #30 tab 10/22/17 Additional Complaint(s): 47 year old male, with a past medical history of seizures, presenting for evaluation of confusion x3 days. Patient states he had a seizure Th evening in his bed, and woke up on Sunday morning feeling very confused with difficulty completing sentences and lesions to his head, arms, and legs that he does not believe are from the seizure. He admits that he is supposed to be taking Depakote, but hasnt in the last few months. He denies any focal weakness , but reports his whole body hurts and he hasnt been able to sleep since Sunday night. He admits that he normally drinks about a pack of beer every day and his last drink was on Sunday, but denies feeling like hes in withdrawal. PMD: Dr. Mcdonald Past Medical History Reviewed: Historical Data, Nursing Documentation, Vital Signs Vital Signs: Last Vital Signs Temp 98.0 F 10/21/17 23:56 Pulse 104 H 10/21/17 23:56 Resp BP 171/93 H 10/21/17 23:56 Pulse Ox 96 10/22/17 01:26 - Medical History PMH: Depression, Seizures (alcohol withdrawal) Denies: HIV, Chronic Kidney Disease - Surgical History Surgical History: Tonsillectomy - Family History Family History: States: Unknown Family Hx - Social History Current smoker - smoking cessation education provided: Yes Alcohol: None Drugs: Denies (recent illicit drug use), Cocaine (many years in the past) - Immunization History Hx Tetanus Toxoid Vaccination: No Hx Influenza Vaccination: No Hx Pneumococcal Vaccination: No - Home Medications Home Medications: Ambulatory Orders Medication Instructions Recorded Divalproex [Depakote DR] 500 mg PO BID #60 tcp 04/21/17 Doxycycline Monohydrate 100 mg PO BID #14 capsule 04/21/17 Thiamine [Vitamin B1 Tab] 100 mg PO DAILY #30 tab 04/21/17 chlordiazePOXIDE [Librium] 25 mg PO Q8 PRN #5 cap 04/21/17 Divalproex [Depakote DR(*BID*)] 500 mg PO BID #60 tcp 10/22/17 Ibuprofen [Motrin Tab] 600 mg PO Q8 PRN #30 tab 10/22/17 - Allergies Allergies/Adverse Reactions: Allergies Allergy/AdvReac Type Severity Reaction Status Date / Time amoxicillin Allergy NAUSEA Verified 04/18/17 06:52 ampicillin Allergy RASH Verified 04/18/17 06:52 erythromycin base Allergy URTICARIA Verified 04/18/17 06:52 Penicillins Allergy RASH Verified 08/01/17 17:38 Review of Systems ROS Statement: Except As Marked, All Systems Reviewed And Found Negative Constitutional: Positive for: Other (body aches) Skin: Positive for: Lesions (head, arms, legs) Neurological: Positive for: Headache, Dizziness, Other (insomnia) Psych: Positive for: Anxiety Physical Exam - Reviewed Nursing Documentation Reviewed: Yes Vital Signs Reviewed: Yes - Physical Exam Appears: Positive for: No Acute Distress (disheveled appearing) Head Exam: Positive for: ATRAUMATIC (abrasions to the left forehead and left zygomatic area) Eye Exam: Positive for: Normal appearance, EOMI, PERRL ENT: Positive for: Pharynx Is (clear), Other (tacky mucous membranes) Neck: Positive for: Painless ROM, Supple Cardiovascular/Chest: Positive for: Regular Rate, Rhythm. Negative for: Murmur Respiratory: Positive for: Normal Breath Sounds. Negative for: Wheezing Gastrointestinal/Abdominal: Positive for: Soft. Negative for: Tenderness Back: Positive for: Normal Inspection. Negative for: Decreased ROM Extremity: Positive for: Normal ROM, Other (faint ecchymosis to the right forearm and right thigh, (-) tenderness or swelling at the sites). 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 Negative for: Motor/Sensory Deficits - Laboratory Results Result Diagrams: 10/22/17 01:20 10/22/17 01:20 - ECG ECG Rhythm: Positive for: Normal QRS, Normal ST Segment, Sinus Bradycardia (59 bpm) O2 Sat by Pulse Oximetry: 96 (RA) Pulse Ox Interpretation: Normal Medical Decision Making Medical Decision Makin Impression: Fever and head injury. Differential diagnoses include, but are not limited to electrolyte abnormality, dehydration, and alcohol withdrawal. Plan: -CT head w/o contrast -EKG -Alcohol serum -CMP -CPK -Urine drug screen -Lactic acid, plasma -Magnesium -Phosphorus -Valporic acid -Urine dipstick -CBC w/ differential -NS 1L IV -alarm security or surveillance monitor -IV insertion -Reevaluation EXAM: CT Head Without Intravenous Contrast EXAM DATE/TIME: 10/22/2017 12:13 AM CLINICAL HISTORY: 47 years old, male; Injury or trauma; Fall; Initial encounter; Abrasion; Forehead; Additional info: Head injury seizure TECHNIQUE: Axial computed tomography images of the head/brain without intravenous contrast. All CT scans at this facility use at least one of these dose optimization techniques: automated exposure control; mA and/or kV adjustment per patient size (includes targeted exams where dose is matched to clinical indication); or iterative reconstruction. Coronal and sagittal reformatted images were created and reviewed. COMPARISON: CT - HEAD W/O CONTRAST 08/01/2017 6:23 PM FINDINGS: Brain: MIld volume loss No hemorrhage. No significant white matter disease. No edema. Ventricles: Normal. No ventriculomegaly. Bones/joints: Normal. No acute fracture. Sinuses: Normal as visualized. No acute sinusitis. Mastoid air cells: Normal as visualized. No mastoid effusion. Soft tissues: Normal. IMPRESSION: No acute findings. Thank you for allowing us to participate in the care of your patient. Dictated and Authenticated by: Socrates Zabala MD 10/22/2017 1:05 AM Eastern Time ([place] & [place]) Labs unremarkable Pt stable during stay in ER and stable for dc. Advised to continue depakote. Given new rx. Scribe Attestation: Documented by Stefano Rehman, acting as a scribe for Micheline Barksdale MD. Provider Scribe Attestation: All medical record entries made by the Scribe were at my direction and personally dictated by me. I have reviewed the chart and agree that the record accurately reflects my personal performance of the history, physical exam, medical decision making, and the department course for this patient. I have also personally directed, reviewed, and agree with the discharge instructions and disposition. Disposition - Clinical Impression Clinical Impression: Seizure, Head injury Counseled Patient/Family Regarding: Studies Performed, Diagnosis, Need For Followup, Rx Given - Disposition Referrals: Chaz Mcdonald MD [Primary Care Provider] - Disposition: Routine/Home Disposition Time: 04:00 Condition: IMPROVED Additional Instructions: REST AND DRINK PLENTY OF HYDRATING FLUIDS TAKE YOUR SEIZURE MEDICATIONS PRESCRIBED FOLLOW UP WITH YOUR DOCTOR THIS WEEK FOR FURTHER EVALUATION AND MANAGEMENT Prescriptions: Divalproex [Depakote DR(*BID*)] 500 mg PO BID #60 tcp Ibuprofen [Motrin Tab] 600 mg PO Q8 PRN #30 tab PRN Reason: Pain, Moderate (4-7) Instructions: Seizures, Adult (DC), Minor Head Injury (DC) Forms: [employer] [facility] (Khmer)
[2017-10-22 01:45] LABS: BASO # 0.1 K/uL (0.0-0.2); BASO % 0.9 % (0.0-2.0); EOS % 0.5 % (0.0-4.0); HEMOGLOBIN 13.8 g/dL (12.0-18.0); LYMPH # 1.2 K/uL (1.0-4.3); LYMPH % 20.2 % (20.0-40.0); MEAN CELL VOLUME 94.6 fl (80.0-94.0); MEAN CORPUSCULAR HEMOGLOBIN 32.5 pg (27.0-31.0); MEAN CORPUSCULAR HGB CONC 34.3 g/dL (33.0-37.0); MEAN PLATELET VOLUME 6.4 fl (7.2-11.7); MONO % 17.2 % (0.0-10.0); NEUT # 3.7 K/uL (1.8-7.0); NEUT % 61.2 % (50.0-75.0); NRBC % 0.1 % (0.0-0.0); RBC 4.26 Mil/uL (4.40-5.90); RED CELL DISTRIBUTION WIDTH 13.2 % (11.5-14.5)
[2017-10-22 02:44] LABS: ALB/GLOB RATIO 1.5 (1.0-2.1); ALBUMIN 4.4 g/dL (3.5-5.0); ALT/SGPT 46 U/L (21-72); AST/SGOT 61 U/L (17-59); BLOOD UREA NITROGEN 17 mg/dl (9-20); CALCIUM 9.6 mg/dL (8.4-10.2); GFR NON-AFRICAN AMERICAN > 60
[2017-10-22 03:53] VITALS: RESP 18
[2017-10-22] MEDS ORDERED: Divalproex 500 mg DR(BID formulation) PO STA (03:59)
[2017-10-22 04:38] VITALS: BP 122/71; PULSE 66; TEMP 98.4
--- NOTE | 2017-10-22 09:40 | CARD ---
APPROVED REPORT Date of service: 10/22/2017 <Conclusion> Normal sinus rhythm Normal ECG
--- NOTE | 2017-10-22 10:19 | CT ---
Date of service: 10/22/2017 PROCEDURE: CT HEAD WITHOUT CONTRAST. HISTORY: Head injury seizure COMPARISON: Comparison made with CT scan brain 08/01/2017. TECHNIQUE: Axial computed tomography images were obtained through the head/brain without intravenous contrast. Radiation dose: Total exam DLP = 895.78 mGy-cm. This CT exam was performed using one or more of the following dose reduction techniques: Automated exposure control, adjustment of the mA and/or kV according to patient size, and/or use of iterative reconstruction technique. FINDINGS: HEMORRHAGE: No acute parenchymal, subarachnoid or extra-axial hemorrhage. BRAIN: No mass effect or edema. No atrophy or chronic microvascular ischemic changes. VENTRICLES: No obstructive hydrocephalus. CALVARIUM: Calvarium intact. Note made of a small approximately 7.4 mm elliptical shaped soft tissue density within the right anterior superior parietal scalp that may represent a inspissated sebaceous cyst PARANASAL SINUSES: Unremarkable as visualized. No significant inflammatory changes. MASTOID AIR CELLS: Unremarkable as visualized. No inflammatory changes. OTHER FINDINGS: None. IMPRESSION: No acute intracranial hemorrhage.
[2017-10-22 20:03] VITALS: O2SAT 96
== END 2017-10-22 04:37 | disposition home or self-care (01) ==
LOC: H.ER 23:52
DX: G40.909 Epilepsy, unspecified, not intractable, without status epilepticus (principal); S09.90XA Unspecified injury of head, initial encounter; W19.XXXA Unspecified fall, initial encounter; Y92.89 Other specified places as the place of occurrence of the external cause; F10.239 Alcohol dependence with withdrawal, unspecified; R42 Dizziness and giddiness; F17.200 Nicotine dependence, unspecified, uncomplicated; F32.9 Major depressive disorder, single episode, unspecified; Z88.0 Allergy status to penicillin; Z88.1 Allergy status to other antibiotic agents
CPT/HCPCS: 70450; 80053; 80164; 80320; 82550; 83605; 83735; 84100; 85025; 93005; 96374; 99285; J1885; J7030

== ENCOUNTER 2017-12-14 15:54 | Emergency (ER) | payer OTHER ==
[2017-12-14 15:55] VITALS: BMI 18.6
[2017-12-14 16:01] VITALS: BP 139/90; PULSE 92; RESP 18; TEMP 98.7; O2SAT 92
--- NOTE | 2017-12-14 16:17 | ED PDOC ---
HPI: Seizure Time Seen by Provider: 12/14/17 16:04 Chief Complaint (Nursing): Seizure Chief Complaint (Provider): Seizure History Per: Patient History/Exam Limitations: no limitations Recent Seizure Activity Began: Just Before Arrival Associated Symptoms: denies: Bit Tongue, Incontinence Of Urine, Injury As A Result Of Seizure Activity Additional Complaint(s): Patient is a 47 y/o male who presents to the ED for evaluation s/p seizure episode just prior to arrival. Patient has history of seizures and is noncompliant with medications because they make him depressed sometimes and they are hard to swallow. He denies any urine incontinence, head injury, or tongue bleeding. Patient states that he has breakthrough seizures frequently and knows it is because he drinks and does not take his medications. Patient its refusing to stay in ER. Patient has been here multiple times. Past Medical History Reviewed: Historical Data, Nursing Documentation, Vital Signs Vital Signs: Last Vital Signs Temp 98.7 F 12/14/17 15:59 Pulse 92 H 12/14/17 15:59 Resp 18 12/14/17 15:59 BP 139/90 12/14/17 15:59 Pulse Ox 92 L 12/14/17 15:59 - Medical History PMH: Depression, Seizures (alcohol withdrawal) Denies: HIV, Chronic Kidney Disease - Surgical History Surgical History: Tonsillectomy - Family History Family History: States: Unknown Family Hx - Immunization History Hx Tetanus Toxoid Vaccination: No Hx Influenza Vaccination: No Hx Pneumococcal Vaccination: No - Home Medications Home Medications: Ambulatory Orders Medication Instructions Recorded Divalproex [Depakote DR] 500 mg PO BID #60 tcp 04/21/17 Doxycycline Monohydrate 100 mg PO BID #14 capsule 04/21/17 Thiamine [Vitamin B1 Tab] 100 mg PO DAILY #30 tab 04/21/17 chlordiazePOXIDE [Librium] 25 mg PO Q8 PRN #5 cap 04/21/17 Divalproex [Depakote DR(*BID*)] 500 mg PO BID #60 tcp 10/22/17 Ibuprofen [Motrin Tab] 600 mg PO Q8 PRN #30 tab 10/22/17 - Allergies Allergies/Adverse Reactions: Allergies Allergy/AdvReac Type Severity Reaction Status Date / Time amoxicillin Allergy NAUSEA Verified 12/14/17 15:59 ampicillin Allergy RASH Verified 12/14/17 15:59 erythromycin base Allergy URTICARIA Verified 12/14/17 15:59 Penicillins Allergy RASH Verified 12/14/17 15:59 Review of Systems ROS Statement: Except As Marked, All Systems Reviewed And Found Negative (as per HPI otherwise negative) Neurological: Positive for: Seizures Physical Exam - Reviewed Nursing Documentation Reviewed: Yes Vital Signs Reviewed: Yes - Physical Exam Appears: Positive for: Well, No Acute Distress Head Exam: Positive for: ATRAUMATIC, NORMOCEPHALIC Skin: Positive for: Normal Color, Warm, Dry Eye Exam: Positive for: EOMI, Normal appearance, PERRL ENT: Positive for: Other (dry mucous membranes) Neurologic/Psych: Positive for: Alert, Oriented (x3), Gait (normal). Negative for: Motor/Sensory Deficits, Aphasia (normal speech) - ECG O2 Sat by Pulse Oximetry: 92 (GISELE) Pulse Ox Interpretation: Abnormal Medical Decision Making Medical Decision Making: Time: 16:04 Impression: seizure Initial Plan: --Patient is refusing to stay Time: 16:15 Leaving Against Medical Advice (AMA): This patient is choosing to leave against medical advice. The EP has personally explained to the pt that choosing to do so may result in permanent bodily harm or . The EP discussed at great length that without further evaluation and monitoring there may be unforeseen circumstances and/or deterioration causing permanent bodily harm or as a result of their choice. The pt verbalized these risks back to the physician in laymans terms. The pt is alert, oriented, and shows the mental capacity to make clear decisions regarding the pts health care at this time. The pt continues to wish to leave against medical advice. In light of the pts decision to leave AMA, follow-up has been arranged and the pt is aware of the importance of following up as instructed. The pt has been advised that they should return to the ED immediately if they change their mind at any time, or if thier condition begins to change or worsen in any way. ----- Scribe Attestation: Documented by Sam Lowery, acting as a scribe for Micheline Barksdale MD. Provider Scribe Attestation: All medical record entries made by the Scribe were at my direction and personally dictated by me. I have reviewed the chart and agree that the record accurately reflects my personal performance of the history, physical exam, medical decision making, and the department course for this patient. I have also personally directed, reviewed, and agree with the discharge instructions and disposition. Disposition - Clinical Impression Clinical Impression: Seizure - Disposition Disposition: Against Medical Advice Disposition Time: 16:15 Condition: IMPROVED Additional Instructions: TAKE YOUR MEDICATIONS PRESCRIBED RETURN TO ER IMMEDIATELY TO COMPLETE YOUR MANAGEMENT Instructions: Seizures, Adult (DC), Leaving Against Medical Advice Forms: [employer] (Kiswahili)
== END 2017-12-14 16:15 | disposition left against medical advice (07) ==
LOC: H.ER 15:54
DX: R56.9 Unspecified convulsions (principal)

== ENCOUNTER 2018-05-27 16:12 | Emergency (ER) | payer OTHER ==
[2018-05-27 16:12] VITALS: BMI 18.6
[2018-05-27] MEDS ORDERED: Sodium Chloride 0.9% 1,000 ML IV STA (16:56)
--- NOTE | 2018-05-27 17:20 | ED PDOC ---
HPI: Seizure Time Seen by Provider: 05/27/18 16:46 Chief Complaint (Nursing): Seizure Chief Complaint (Provider): Seizure History Per: Patient History/Exam Limitations: no limitations Additional Complaint(s): Pt BIBA after witnessed seizure at work today, thinks he also had one this morning, noncompliant with Depakote X "months". Denies tongue biting, incontinence. Unsure of head injury. Now c/o back pain and slight DEL ROSARIO. Past Medical History Reviewed: Nursing Documentation, Vital Signs Vital Signs: Last Vital Signs Temp 98.9 F 05/27/18 16:27 Pulse 105 H 05/27/18 16:27 Resp 18 05/27/18 16:27 BP 141/92 H 05/27/18 16:27 Pulse Ox 99 05/27/18 16:27 - Medical History PMH: Depression, Seizures (alcohol withdrawal) Denies: Diabetes, Hepatitis, HIV, HTN, Chronic Kidney Disease, Sexually Transmitted Disease - Surgical History Surgical History: Tonsillectomy - Family History Family History: States: Unknown Family Hx - Social History Current smoker - smoking cessation education provided: Yes Alcohol: > 2 Drinks/Day Drugs: Cannabis - Immunization History Hx Tetanus Toxoid Vaccination: No Hx Influenza Vaccination: No Hx Pneumococcal Vaccination: No - Home Medications Home Medications: Ambulatory Orders Medication Instructions Recorded Thiamine [Vitamin B1 Tab] 100 mg PO DAILY #30 tab 04/21/17 chlordiazePOXIDE [Librium] 25 mg PO Q8 PRN #5 cap 04/21/17 Divalproex [Depakote DR(*BID*)] 500 mg PO BID #60 tcp 10/22/17 Ibuprofen [Motrin Tab] 600 mg PO Q8 PRN #30 tab 10/22/17 Divalproex [Depakote DR(*BID*)] 500 mg PO BID #20 tcp 05/27/18 - Allergies Allergies/Adverse Reactions: Allergies Allergy/AdvReac Type Severity Reaction Status Date / Time amoxicillin Allergy NAUSEA Verified 05/27/18 16:27 ampicillin Allergy RASH Verified 05/27/18 16:27 erythromycin base Allergy URTICARIA Verified 05/27/18 16:27 Penicillins Allergy RASH Verified 05/27/18 16:27 Review of Systems Constitutional: Negative for: Fever, Chills Eyes: Negative for: Vision Change Cardiovascular: Negative for: Chest Pain Respiratory: Negative for: Cough, Shortness of Breath Gastrointestinal: Negative for: Nausea, Vomiting Musculoskeletal: Positive for: Back Pain. Negative for: Neck Pain Neurological: Positive for: Seizures, Headache. Negative for: Weakness, Numbness, Incoordination, Change in Speech, Confusion, Altered Mental Status, Dizziness Physical Exam - Reviewed Nursing Documentation Reviewed: Yes Vital Signs Reviewed: Yes - Physical Exam Appears: Positive for: Well, No Acute Distress Head Exam: Positive for: ATRAUMATIC, NORMAL INSPECTION Skin: Positive for: Normal Color, Warm, Dry Eye Exam: Positive for: Normal appearance, EOMI, PERRL Cardiovascular/Chest: Positive for: Regular Rate, Rhythm Respiratory: Positive for: Normal Breath Sounds Gastrointestinal/Abdominal: Positive for: Normal Exam, Bowel Sounds, Soft. N egative for: Tenderness Back: Positive for: Normal Inspection, Vertebral Tenderness (Lower thoracic). 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 Negative for: Motor/Sensory Deficits, Facial Droop - Laboratory Results Result Diagrams: 05/27/18 17:42 05/27/18 17:42 - ECG O2 Sat by Pulse Oximetry: 99 Medical Decision Making Medical Decision Makin yo male with recurrent seizure, noncompliant. - labs - EKG - CXR - XR thoracic spine - CT head - Valproic acid - IVF 20:[address] head and XR because he normally has back pain and DEL ROSARIO after seizures. Disposition - Clinical Impression Clinical Impression: Seizure disorder - Patient ED Disposition Is Patient to be Admitted: No - Disposition Disposition: Routine/Home Disposition Time: 20:24 Condition: IMPROVED Additional Instructions: FOLLOW-UP WITH YOUR NEUROLOGIST WITHIN 2 DAYS FOR REEVALUATION. TAKE YOUR SEIZURE MEDICATION! Prescriptions: Divalproex [Depakote DR(*BID*)] 500 mg PO BID #20 tcp Instructions: Seizures, Adult (DC) Forms: [employer] (Ukrainian)
[2018-05-27] MEDS ORDERED: Valproic Acid 250 mg/5 ml Oral Syrup (60 ml) PO STA (17:23)
[2018-05-27 17:49] LABS: BASO # 0.1 K/uL (0.0-0.2); BASO % 0.5 % (0.0-2.0); EOS % 0.1 % (0.0-4.0); HEMOGLOBIN 15.4 g/dL (12.0-18.0); LYMPH # 0.8 K/uL (1.0-4.3); LYMPH % 6.8 % (20.0-40.0); MEAN CELL VOLUME 94.7 fl (80.0-94.0); MEAN CORPUSCULAR HEMOGLOBIN 31.9 pg (27.0-31.0); MEAN CORPUSCULAR HGB CONC 33.6 g/dL (33.0-37.0); MEAN PLATELET VOLUME 6.6 fl (7.2-11.7); MONO # 0.8 K/uL (0.0-0.8); MONO % 7.1 % (0.0-10.0); NEUT # 9.5 K/uL (1.8-7.0); NEUT % 85.5 % (50.0-75.0); NRBC % 0.1 % (0.0-0.0); PLATELET COUNT 226 K/uL (130-400); RBC 4.82 Mil/uL (4.40-5.90); RED CELL DISTRIBUTION WIDTH 14.1 % (11.5-14.5); WHITE BLOOD COUNT 11.1 K/uL (4.8-10.8)
[2018-05-27 18:07] LABS: PARTIAL THROMBOPLASTIN TIME 26.5 Seconds (25.6-37.1)
[2018-05-27 18:09] LABS: ALB/GLOB RATIO 1.5 (1.0-2.1); ALBUMIN 4.7 g/dL (3.5-5.0); BLOOD UREA NITROGEN 9 mg/dl (9-20); CALCIUM 10.2 mg/dL (8.4-10.2); GFR NON-AFRICAN AMERICAN > 60
[2018-05-27 18:12] LABS: INR 0.9
[2018-05-27 18:15] LABS: ALT/SGPT 32 U/L (21-72); AST/SGOT 39 U/L (17-59)
[2018-05-27 18:46] LABS: PROTHROMBIN TIME 9.8 Seconds (9.8-13.1)
[2018-05-27 18:55] LABS: SPERM URINE OCC /hpf; URINE BACTERIA MOD (<OCC); URINE BILIRUBIN NEGATIVE (NEGATIVE); URINE BLOOD SMALL (NEGATIVE); URINE CLARITY CLOUDY (Clear); URINE COLOR YELLOW (YELLOW); URINE GLUCOSE (UA) NEG (NEGATIVE); URINE LEUKOCYTE ESTERASE NEG Leu/uL (Negative); URINE PROTEIN 30 mg/dL (NEGATIVE); URINE UROBILINOGEN 0.2-1.0 mg/dL (0.2-1.0)
[2018-05-27 20:28] LABS: BANDS 2 % (0-2); LYMPHOCYTE 9 % (20-50); MONOCYTE 9 % (0-10); NEUTROPHIL 80 % (42-75); PLATELET ESTIMATE NORMAL (NORMAL); TOTAL CELLS COUNTED 100
[2018-05-27 21:55] VITALS: BP 138/78; PULSE 79; RESP 15; TEMP 98.1; O2SAT 97
--- NOTE | 2018-05-28 11:33 | CARD ---
APPROVED REPORT Date of service: 05/27/2018 EKG Measurement Heart [id number] <Conclusion> Normal sinus rhythm Normal ECG
== END 2018-05-27 21:20 | disposition home or self-care (01) ==
LOC: H.ER 16:12
DX: G40.909 Epilepsy, unspecified, not intractable, without status epilepticus (principal); F17.200 Nicotine dependence, unspecified, uncomplicated; Z88.0 Allergy status to penicillin; Z91.14 Patient's other noncompliance with medication regimen
CPT/HCPCS: 80053; 80164; 81003; 82948; 85025; 85610; 85730; 93005; 99285; J7030